=== PATIENT | male | born 1950 | race Caucasian/White ===

== ENCOUNTER 2021-04-11 10:24 | Outpatient (CLI) | payer MEDICARE, MEDICAID, SELFPAY ==
--- NOTE | 2021-04-11 10:44 | XR_ITS ---
WS: [id number] Exam: XR hip RT 2-3V wo/w pel* [id number] Date/Time of Exam: 04/11/2021 10:49 AM Reason For Exam: RIGHT HIP PAIN No acute fracture or dislocation. Degenerative change of the acetabulum. The joint space is relativel y well maintained. Normal soft tissues. XR/XR hip RT 2-3V wo/w pel* [id number] IMPRESSION: 1. Degenerative changes of the acetabulum. 2. No fracture or dislocation.
== END 2021-04-11 10:25 | disposition home or self-care (01) ==
LOC: RAD 10:33
PROVIDERS: PCP Family Medicine; Visit Provider Family Medicine
DX: M25.551 Pain in right hip (principal)
CPT/HCPCS: 73502

== ENCOUNTER → 2021-05-02 09:57 | Outpatient (BNVA) | payer MEDICARE, MEDICAID, SELFPAY | PROVIDERS: PCP Family Medicine; Referring Provider Family Medicine; Visit Provider Specialist | DX: M25.551 Pain in right hip (principal) | CPT/HCPCS: 73502 ==

== ENCOUNTER → 2021-05-08 11:20 | Outpatient (BNVA) | payer MEDICARE, MEDICAID, SELFPAY | PROVIDERS: PCP Family Medicine; Visit Provider Orthopaedic Surgery | DX: M47.896 Other spondylosis, lumbar region (principal); I70.0 Atherosclerosis of aorta; M25.551 Pain in right hip; M54.5 Low back pain | CPT/HCPCS: 72110 ==

== ENCOUNTER 2021-05-29 13:27 | Outpatient (CLI) | payer MEDICARE, MEDICAID, SELFPAY ==
--- NOTE | 2021-05-29 13:36 | MR_ITS ---
WS: [id number] MRI LUMBAR SPINE NONCONTRAST TECHNIQUE: Sagittal T1, T2 and STIR imaging. Axial T1 and T2 imaging. CLINICAL INFORMATION: SPINAL STENOSIS, LUMBAR REGION COMPARISON: MRI 2007 FINDINGS: Mild lumbar curve. No acute compression. Disc disease throughout the lumbar spine with disc space amee rowing and endplate degenerative changes. T12-L1: Mild disc bulging with mild central canal stenosis. Mild facet arthropathy. Mild bilateral fo raminal narrowing. L1-L2: Mild disc bulging and osteophytic ridging. Mild central canal stenosis. Moderate left and no r ight foraminal narrowing. Mild facet arthropathy. L2-L3: Mild disc bulging with osteophytic ridging. Moderate to severe central canal stenosis. Moderat e facet arthropathy. Impingement traversing L3 nerve roots bilaterally. Moderate left and mild right foraminal narrowing. L3-L4: Mild disc bulging and osteophytic ridging. Severe central canal stenosis and impingement on th e traversing L4 nerve roots bilaterally. Moderate to advanced facet arthropathy. Moderate bilateral f oraminal narrowing impinges the exiting L3 nerve roots bilaterally. L4-L5: Mild disc bulging and osteophytic ridging. Moderate to severe central canal stenosis. Impingem ent traversing L5 nerve roots with moderate facet arthropathy. Ligament flavum hypertrophy. Moderate to severe bilateral bony foraminal narrowing. Impingement on the exiting L4 nerve roots worse in the right. L5-S1: Mild disc bulging and osteophytic ridging. Moderate facet arthropathy. Slight impingement on t he left greater than right S1 nerve roots. Severe right greater than left foraminal narrowing. Visualized pelvic bony structures: Normal. Paravertebral soft tissues: Normal. MR/MR lumbar spine wo con* [id number] IMPRESSION: 1. Severe central canal stenosis L2-3 and L3-4 slightly progressed compared to 2007 with redundancy of the cauda equina nerve roots. Moderate to severe centr al canal stenosis L4-5 appears slightly progressed. 2. Mild central canal stenosis T12-L1 and L1-L2. 3. Moderate bilateral foraminal narrowing L3-4. 4. Moderate to severe bilateral foraminal narrowing L4-5 with impingement on t he exiting L4 nerve roots, right greater than left. 5. Severe bilateral L5-S1 foraminal narrowing with impingement on the exiting L5 nerve roots worse on the right. 6. Moderate facet arthropathy L3-L5.
== END 2021-05-29 13:28 | disposition home or self-care (01) ==
PROVIDERS: PCP Family Medicine; Visit Provider Orthopaedic Surgery
DX: M48.062 Spinal stenosis, lumbar region with neurogenic claudication (principal); M48.05 Spinal stenosis, thoracolumbar region; M48.061 Spinal stenosis, lumbar region without neurogenic claudication; M47.816 Spondylosis without myelopathy or radiculopathy, lumbar region
CPT/HCPCS: 72148

== ENCOUNTER → 2021-07-03 10:48 | Day surgery (SDC) | payer MEDICARE, MEDICAID, SELFPAY | PROVIDERS: PCP Family Medicine; Visit Provider Orthopaedic Surgery | DX: Z01.818 Encounter for other preprocedural examination (principal) | CPT/HCPCS: 93005 ==

== ENCOUNTER → 2021-07-03 11:47 | Outpatient (BNVA) | payer MEDICARE, MEDICAID, SELFPAY | PROVIDERS: PCP Family Medicine; Visit Provider Orthopaedic Surgery | DX: Z20.822 Contact with and (suspected) exposure to COVID-19 (principal); M51.37 Other intervertebral disc degeneration, lumbosacral region | CPT/HCPCS: 87635 ==

== ENCOUNTER 2021-07-10 05:38 | Day surgery (SDC) | payer MEDICARE, MEDICAID, SELFPAY ==
--- NOTE | 2021-07-03 10:48 | ECG_ITS ---
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 Measurements Intervals [place] Rate: 52 P: 43 CO: 195 QRS: 53 QRSD: 92 T: 51 QT: 411 QTc: 384 Interpretive Statements SINUS BRADYCARDIA No previous ECG available for comparison Electronically Signed On 07-03-2021 22:12:23 BLOCK SORTER by Avery Benavides M.D. [email or web address]
[2021-07-03 10:57] VITALS: BMI 28.1
--- NOTE | 2021-07-03 12:52 | ANES.PREANE2 ---
Pre-Anesthetic Assessment Pre-Anesthetic Assessment: Height/Weight: Height 1.73 m Weight 83.915 kg Proposed Procedure: Operation Date: 07/10/21 07:00 Proposed Procedures p Lumbar Spine Decompression L2/3 L3/4 L4/5 87781 82292(x2) M51.37(Right) - Jakob H Taniya, DO Was Beta Jemal taken within 24 hours: N/A Was Clonidine taken within 24 hours: N/A Social: Social History: No alcohol and No tobacco Exam: Pre-Anes Outpt Exam: alert, oriented x 3, clear to auscultation bilaterally and regular rate & rhythm Airway: Submandibular: WNL Cervical ROM: WNL MP: 2 Dentition: False GI: GI: GERD Metabolic: Metabolic: Hyperlipidemia Anesthetic Plan: ASA status: 3 Anesthesia: General Risk of > 500 ml blood loss (7ml/kg in children): No PFSH Anesthesia PFSH: Social History Second hand smoke exposure: No Smoking risk assessment/counseling performed?: No Alcohol intake: never Desire information about alcohol rehabilitation?: No Counseling given: No Adopted: No Caregiver/support person: No Lives independently: Yes Marital status: Single Number of children: 3 Number of grandchildren: 6 service: No Current occupational status: retired Previous occupational history: [employer] Pets and animals: No History of recent travel: No Data Anesthesia Cardiac Studies: No Data to Display
[2021-07-10] VITALS (7 sets, daily range): BP systolic 109–163; BP diastolic 53–83; PULSE 64–85; RESP 12–20; TEMP 36.4–36.9; O2SAT 93–98
--- NOTE | 2021-07-10 | SCC_ITS ---
Procedure Done: 1. bilateral L2/3 laminectomy with partial facetectomies 2. bilateral L3/4 laminectomy with partial facetectomies 3. bilateral L4/5 laminectomies with partial facetectomies 25.5 seconds of fluoroscopic guidance, for a cumulative dose of 12.01 mGy, was provided to Dr. Monahan by the radiology department. C-arm images of the lumbar spine were saved for the patient's permanent record. [facility]
[2021-07-10] MEDS: sodium chloride 0.9% 1,000 ML 30 ML IV (06:20)
--- NOTE | 2021-07-10 06:31 | ANES.PAUD2 ---
Pre-Anesthetic Update Pre-Anesthetic Assessment: Date of Surgery/Procedure: 07/10/21 Preop Diagnosis: Lumbar stenosis with neurogenic claudication Proposed Procedure: Operation Date: 07/10/21 07:00 Proposed Procedures p Lumbar Spine Decompression L2/3 L3/4 L4/5 24051 73843(x2) M51.37(Right) - Jakobgeraldine Monahan, DO Any changes to Pre-Anesthetic Assessment?: No Exam: Pre-Anes Outpt Exam: alert, oriented x 3, clear to auscultation bilaterally and regular rate & rhythm Cardiac Studies: No Data to Display
--- NOTE | 2021-07-10 06:44 | W.PM.OPSUD ---
Surgery/Procedure H&P Update DATE OF PROCEDURE: July 10, 2021 DATE H&P PERFORMED: 06/12/21 H&P UPDATE INFORMATION: I have reviewed H&P completed within last 30 days, I have examined patient prior to procedure and No changes to prior documentation PREOP DIAGNOSIS: Lumbar stenosis with neurogenic claudication PLANNED PROCEDURE: Operation Date: 07/10/21 07:00 Proposed Procedures p Lumbar Spine Decompression L2/3 L3/4 L4/5 34007 88251(x2) M51.37(Right) - Jakob Monahan DO
--- NOTE | 2021-07-10 08:58 | XR_ITS ---
WS: [id number] C-ARM RADIOGRAPHS LUMBAR SPINE; 4 IMAGES HISTORY: DEGENERATIVE DISC DISEASE COMPARISON: None available. Intraoperative imaging during spinal decompression. Decompression markers are at multiple levels of t he lumbar spine. XR/XR lumbar spine 1V [id number] IMPRESSION: Intraoperative guidance during lumbar decompression at multiple levels.
--- NOTE | 2021-07-10 09:01 | PM.OP ---
Operative Report Date of procedure: July 10, 2021 Pre-op Diagnosis: Lumbar stenosis with neurogenic claudication Post-op diagnosis: same Procedure Done: 1. bilateral L2/3 laminectomy with partial facetectomies 2. bilateral L3/4 laminectomy with partial facetectomies 3. bilateral L4/5 laminectomies with partial facetectomies Surgeon: Jakob Monahan Assistant Chief Train Dispatcher: Sarkis Albarado Assistant Chief Train Dispatcher: The surgical specialist, Sarkis Albarado, PAC was needed for his expertise under the microscope. He was important and necessary throughout the procedure to complete in a safe and timely manner. He assisted with patient positioning prepping and draping tissue retraction suctioning of the operative field protection of the dural sac and tissue closure Estimated blood loss (mL): 25 Condition: stable Disposition: PACU Procedure: Patient is brought to the operative suite. After undergoing anesthesia they are placed in the prone position. All areas of impingement are well padded. Patient is then prepped and draped in the normal sterile fashion. A skin incision is made over the L4/5 level. This is confirmed under c-arm guidance. A series of dilators are passed and the tubular retractor is docked on the L4 lamina. A bovie is used to clear the soft tissue off the lamina and the L 4/5 facet joint. A high speed russel is then used to perform the laminectomy and take down the medial aspect of the L 4/5 facet joint. A kerrison rongeure was then used to take down the remaining lamina and smooth the edged of the laminectomy up to the point where the ligamentum flavum attaches. Attention was then brought to the medial aspect of the facet joint. The remaining medial aspect of the superior and inferior aspect of the facet joint were taken down with the kerrison from the pedicle of L4 to L 5. The facet joint had significant hypertrophy. Attention was then brought to the Ligamentum Flavum. The ligament was taken down from the lamina of L4 to L5 and out medially to the remaining facet joint. The ligament was thick and calcified. The dura was then exposed. The dura was in good repair. The L4 nerve was then traced with a curette out the L4/5 foramen and found to be adequately decompressed. The L5 nerve was traced with a curette around the L5 pedicle. The lateral recess was opened with a kerrison helping to further decompress the L5 nerve. The tubular retractor was then tilted to the contralateral side. The bovie was used to take down the soft tissue on the spinous process. The high speed russel was used to take down the spinous process and then the contralateral lamina of L4. The kerrison rongeur was used to take down the remaining lamina to the point where the ligamentum flavum attached and the ligamentum flavum was taken down from L4 to L5. The kerrison rongeur was then used to reach across and take down the medial aspect of the contralateral L4/5 facet joint.The currete was used to trace the contralateral L4 nerve out the L4/5 foramen to make sure it was decompressed adequatesly and the L5 was traced around the L5 pedicle. The lateral recess was opened further with the kerrison to ensure the L5 is adequately decompressed. Wound is then irrigated copiously with saline and surgiflo is used to stop any bleeding. The tubular retractor is removed and A skin incision is made over the L3/4 level. This is confirmed under c-arm guidance. A series of dilators are passed and the tubular retractor is docked on the L3 lamina. A bovie is used to clear the soft tissue off the lamina and the L 3/4 facet joint. A high speed russel is then used to perform the laminectomy and take down the medial aspect of the L 3/4 facet joint. A kerrison rongeure was then used to take down the remaining lamina and smooth the edged of the laminectomy up to the point where the ligamentum flavum attaches. Attention was then brought to the medial aspect of the facet joint. The remaining medial aspect of the superior and inferior aspect of the facet joint were taken down with the kerrison from the pedicle of L3 to L 4. The facet joint had significant hypertrophy. Attention was then brought to the Ligamentum Flavum. The ligament was taken down from the lamina of L3 to L4 and out medially to the remaining facet joint. The ligament was thick. The dura was then exposed. The dura was in good repair. The L3 nerve was then traced with a curette out the L3/4 foramen and found to be adequately decompressed. The L4 nerve was traced with a curette around the L4 pedicle. The lateral recess was opened with a kerrison helping to further decompress the L4 nerve. The tubular retractor was then tilted to the contralateral side. The bovie was used to take down the soft tissue on the spinous process. The high speed russel was used to take down the spinous process and then the contralateral lamina of L3. The kerrison rongeur was used to take down the remaining lamina to the point where the ligamentum flavum attached and the ligamentum flavum was taken down from L3 to L4. The kerrison rongeur was then used to reach across and take down the medial aspect of the contralateral L3/4 facet joint.The currete was used to trace the contralateral L3 nerve out the L3/4 foramen to make sure it was decompressed adequatesly and the L4 was traced around the L4 pedicle. The lateral recess was opened further with the kerrison to ensure the L4 is adequately decompressed. Wound is then irrigated copiously with saline and surgiflo is used to stop any bleeding. The tubular retractor is removed and A skin incision is made over the L2/3 level. This is confirmed under c-arm guidance. A series of dilators are passed and the tubular retractor is docked on the L2 lamina. A bovie is used to clear the soft tissue off the lamina and the L 2/3 facet joint. A high speed russel is then used to perform the laminectomy and take down the medial aspect of the L 2/3 facet joint. A kerrison rongeure was then used to take down the remaining lamina and smooth the edged of the laminectomy up to the point where the ligamentum flavum attaches. Attention was then brought to the medial aspect of the facet joint. The remaining medial aspect of the superior and inferior aspect of the facet joint were taken down with the kerrison from the pedicle of L2 to L 3. The facet joint had significant hypertrophy. Attention was then brought to the Ligamentum Flavum. The ligament was taken down from the lamina of L2 to L3 and out medially to the remaining facet joint. The ligament was thick. The dura was then exposed. The dura was in good repair. The L2 nerve was then traced with a curette out the L2/3 foramen and found to be adequately decompressed. The L3 nerve was traced with a curette around the L3 pedicle. The lateral recess was opened with a kerrison helping to further decompress the L3 nerve. The tubular retractor was then tilted to the contralateral side. The bovie was used to take down the soft tissue on the spinous process. The high speed russel was used to take down the spinous process and then the contralateral lamina of L2. The kerrison rongeur was used to take down the remaining lamina to the point where the ligamentum flavum attached and the ligamentum flavum was taken down from L2 to L3. The kerrison rongeur was then used to reach across and take down the medial aspect of the contralateral L2/3 facet joint.The currete was used to trace the contralateral L2 nerve out the L2/3 foramen to make sure it was decompressed adequatesly and the L3 was traced around the L3 pedicle. The lateral recess was opened further with the kerrison to ensure the L3 is adequately decompressed. Wound is then irrigated copiously with saline and surgiflo is used to stop any bleeding. The tubular retractor is removed and the wound is closed with vicryl and monocryl suture. Glue is then used to protect the wound. A sterile dressing is then placed. Patient was then placed in the supine position and transferred to the PACU in stable condition.
--- NOTE | 2021-07-10 10:08 | SUR.PHASEII ---
ROM and sensation all 4 extremities.
--- NOTE | 2021-07-10 13:44 | ANE.PACU2 ---
Inpatient post-anesthesia follow up: Airway intact: Yes Vital signs: Temperature 98.2 F Pulse Rate 64 Respiratory Rate 16 Blood Pressure 125/53 Pulse Oximetry 95 Oxygen Delivery Me thod Room Air Oxygen Flow Rate Fraction of Inspir ed Oxygen Hydration adequate: Yes Nausea and vomiting: No Pain level: 1 Mental status: Baseline
== END 2021-07-10 10:05 | disposition home or self-care (01) ==
PROVIDERS: PCP Family Medicine; Visit Provider Orthopaedic Surgery
PROC: (CPT 63005; principal; 2021-07-10 07:00)
DX: M48.062 Spinal stenosis, lumbar region with neurogenic claudication (principal)
CPT/HCPCS: 63047; 63048 ×2; 72020; 76000; J0690; J1100; J2370; J2405; J2704; J2710; J3010; J3490; J7030

== ENCOUNTER → 2022-01-04 14:33 | Outpatient (BNVA) | payer MEDICARE, MEDICAID, SELFPAY | PROVIDERS: PCP Family Medicine; Visit Provider Family Medicine | DX: N28.9 Disorder of kidney and ureter, unspecified (principal) | CPT/HCPCS: 80048 ==

== ENCOUNTER → 2022-05-14 12:47 | Outpatient (BNVA) | payer MEDICARE, MEDICAID, SELFPAY | PROVIDERS: PCP Family Medicine; Visit Provider Orthopaedic Surgery | DX: M48.062 Spinal stenosis, lumbar region with neurogenic claudication (principal); Z98.890 Other specified postprocedural states; M47.816 Spondylosis without myelopathy or radiculopathy, lumbar region; M25.78 Osteophyte, vertebrae | CPT/HCPCS: 72110; 99214 ==

== ENCOUNTER 2022-07-09 09:47 | Outpatient (CLI) | payer MEDICARE, MEDICAID, SELFPAY ==
--- NOTE | 2022-07-09 10:15 | MR_ITS ---
WS: [id number] MRI LUMBAR SPINE NONCONTRAST TECHNIQUE: Sagittal T1, T2 and STIR imaging. Axial T1 and T2 imaging. CLINICAL INFORMATION: post op increased pain due to fall COMPARISON: MRI May 29, 2021 FINDINGS: Mild lumbar curve. No acute compression. Multilevel degenerative disc disease with disc desiccation t hroughout the lumbar spine with mild disc bulging. RIGHT hemilaminectomy L2-L3 is new from previous. Improved central canal stenosis at this level. RIGHT hemilaminectomy L3-L4 appears new from previous. Improved central canal stenosis at this level with moderate residual narrowing. RIGHT hemilaminectom y L4-L5 appears new from previous with improved central canal stenosis. Suggestion of syrinx in the mid thoracic cord seen on the edge trimming machine operator imaging. This is similar in appearanc e to previous and better visualized today on the edge trimming machine operator imaging. This can be further evaluated with th oracic spine MRI if indicated. Small disc protrusions lower thoracic spine. L1-L2: Mild disc bulging with mild central canal stenosis. Moderate facet arthropathy. Moderate LEFT foraminal narrowing. L2-L3: Mild disc bulging with osteophytic ridging. RIGHT hemilaminectomy is new from previous. Mild r esidual central canal stenosis. Moderate facet arthropathy. Moderate LEFT and mild RIGHT foraminal na rrowing. L3-L4: RIGHT hemilaminectomy is new from previous. Spinal canal stenosis is improved with moderate re sidual narrowing. Moderate to advanced facet arthropathy. Narrowing of the subarticular recess. Moder ate bilateral foraminal narrowing. L4-L5: RIGHT hemilaminectomy appears new from previous. Mild residual central canal stenosis with bro ad-based central protrusion. Impingement on traversing L5 nerve roots bilaterally. Advanced facet art hropathy. Moderate to severe RIGHT and moderate LEFT foraminal narrowing. L5-S1: Mild disc bulging and osteophytic ridging. Slight narrowing of the LEFT subarticular recess. M oderate facet arthropathy. Moderate to severe LEFT greater than RIGHT bony foraminal narrowing unchan ged. Advanced facet arthropathy. Visualized pelvic bony structures: Normal. Paravertebral soft tissues: Normal. MR/MR lumbar spine wo con* [id number] IMPRESSION: 1. Normal expected postoperative changes interval laminectomy defects. No epid ural abscess or drainable fluid collections. 2. Hemilaminectomies at RIGHT L2-L3, L3-L4, L4-L5 are new compared to previous with improved central canal stenosis. Mild to moderate residual central canal stenosis worse at L2-L3 and L3-L4 although improved from previous. 3. Suggestion of a small central syrinx within the thoracic cord on the edge trimming machine operator imaging is better visualized today. Some of this may represent artifact. This c an be further evaluated with thoracic spine MRI if indicated. 4. No other significant changes compared to previous
== END 2022-07-09 09:48 | disposition home or self-care (01) ==
LOC: RAD 09:48
PROVIDERS: PCP Family Medicine; Visit Provider Orthopaedic Surgery
DX: M48.062 Spinal stenosis, lumbar region with neurogenic claudication (principal); Z48.89 Encounter for other specified surgical aftercare
CPT/HCPCS: 72148

== ENCOUNTER → 2022-07-23 14:34 | Outpatient (BNVA) | payer MEDICARE, MEDICAID, SELFPAY | PROVIDERS: PCP Family Medicine; Visit Provider Orthopaedic Surgery | DX: M48.062 Spinal stenosis, lumbar region with neurogenic claudication (principal) | CPT/HCPCS: 99214 ==

== ENCOUNTER → 2022-08-26 08:58 | Outpatient (BNVA) | payer MEDICARE, MEDICAID, SELFPAY | PROVIDERS: PCP Family Medicine; Visit Provider Anesthesiology Pain Medicine | DX: M48.062 Spinal stenosis, lumbar region with neurogenic claudication (principal); M51.37 Other intervertebral disc degeneration, lumbosacral region; M47.816 Spondylosis without myelopathy or radiculopathy, lumbar region; M79.604 Pain in right leg; M79.605 Pain in left leg | CPT/HCPCS: 99205 ==

== ENCOUNTER → 2022-09-12 14:04 | Outpatient (BNVA) | payer MEDICARE, MEDICAID, SELFPAY | PROVIDERS: PCP Family Medicine; Visit Provider Anesthesiology Pain Medicine | DX: M54.16 Radiculopathy, lumbar region (principal); M48.062 Spinal stenosis, lumbar region with neurogenic claudication | CPT/HCPCS: 64483; 64484; J1100; J3490 ==

== ENCOUNTER → 2022-09-26 13:02 | Outpatient (BNVA) | payer MEDICARE, MEDICAID, SELFPAY | PROVIDERS: PCP Family Medicine; Visit Provider Anesthesiology Pain Medicine | DX: M54.16 Radiculopathy, lumbar region (principal); M48.062 Spinal stenosis, lumbar region with neurogenic claudication | CPT/HCPCS: 64483; 64484; J1100; J3490 ==

== ENCOUNTER → 2022-10-10 10:22 | Outpatient (BNVA) | payer MEDICARE, MEDICAID, SELFPAY | PROVIDERS: PCP Family Medicine; Visit Provider Anesthesiology Pain Medicine | DX: M51.17 Intervertebral disc disorders with radiculopathy, lumbosacral region (principal); M48.062 Spinal stenosis, lumbar region with neurogenic claudication; M51.37 Other intervertebral disc degeneration, lumbosacral region; M47.816 Spondylosis without myelopathy or radiculopathy, lumbar region | CPT/HCPCS: 99214 ==

== ENCOUNTER → 2023-03-11 10:04 | Outpatient (BNVA) | payer MEDICARE, MEDICAID, SELFPAY | PROVIDERS: PCP Family Medicine; Visit Provider Family Medicine | DX: Z13.6 Encounter for screening for cardiovascular disorders (principal); R73.9 Hyperglycemia, unspecified | CPT/HCPCS: 80053; 80061; 83036; 85025 ==

== ENCOUNTER → 2023-07-08 14:15 | Outpatient (BNVA) | payer MEDICARE, MEDICAID, SELFPAY | PROVIDERS: PCP Family Medicine; Referring Provider Family Medicine; Visit Provider Dermatology | DX: L57.0 Actinic keratosis (principal); L82.1 Other seborrheic keratosis; L81.4 Other melanin hyperpigmentation; L57.8 Other skin changes due to chronic exposure to nonionizing radiation; Z85.828 Personal history of other malignant neoplasm of skin | CPT/HCPCS: 17004; 99203 ==

== ENCOUNTER → 2023-09-02 10:01 | Outpatient (BNVA) | payer MEDICARE, MEDICAID, SELFPAY | PROVIDERS: PCP Family Medicine; Visit Provider Family Medicine | DX: K21.9 Gastro-esophageal reflux disease without esophagitis (principal); N52.9 Male erectile dysfunction, unspecified; M51.37 Other intervertebral disc degeneration, lumbosacral region; Z13.6 Encounter for screening for cardiovascular disorders | CPT/HCPCS: 80053; 80061; 85025 ==

== ENCOUNTER 2023-10-15 09:24 | Outpatient (CLI) | payer MEDICARE, MEDICAID, SELFPAY ==
--- NOTE | 2023-10-15 09:31 | XR_ITS ---
WS: [id number] Exam: XR chest 2V* [id number] Date/Time of Exam: 10/15/2023 9:59 AM Reason For Exam: R05.3 - Chronic cough Comparison 03/16/2016. The lungs are hyperinflated and clear. Normal cardiomediastinal silhouette. Bony structures are intac t. Rotator cuff anchoring screws in the bilateral humeri. IMPRESSION: 1. Pulmonary hyperinflation which might represent obstructive lung disease. No acute process noted.
== END 2023-10-15 09:25 | disposition home or self-care (01) ==
PROVIDERS: PCP Family Medicine; Visit Provider Family Medicine
DX: R05.3 Chronic cough (principal); R91.8 Other nonspecific abnormal finding of lung field
CPT/HCPCS: 71046

== ENCOUNTER 2023-11-04 09:25 | Outpatient (CLI) | payer MEDICARE, MEDICAID, SELFPAY ==
--- NOTE | 2023-11-04 09:35 | CTR_ITS ---
PROCEDURE INFORMATION: Exam: CT Chest With Contrast; Diagnostic Exam date and time: 11/04/2023 10:35 AM Age: 72 years old Clinical indication: Cough; Additional info: R05.3 - chronic cough TECHNIQUE: Imaging protocol: Diagnostic computed tomography of the chest with contrast. Radiation optimization: All CT scans at this facility use at least one of these dose optimization techniques: automated exposure control; mA and/or kV adjustment per patient size (includes targeted exams where dose is matched to clinical indication); or iterative reconstruction. Contrast material: OMNI 350; Contrast volume: 100 ml; Contrast route: INTRAVENOUS (IV); COMPARISON: CR XR chest 2V* [id number] 10/15/2023 10:00 AM RADIATION DOSE METRICS: Total DLP (mGy-cm): 417.42 FINDINGS: Lungs: No focal lung consolidation. Scattered calcified granulomas measuring up to 0.5 cm in the right upper lobe. Pleural spaces: No pneumothorax. No pleural effusion. Heart: No cardiomegaly. No pericardial effusion. Coronary arteries: Coronary artery calcifications. Mediastinal space: The visualized trachea and esophagus are unremarkable in appearance. Lymph nodes: Calcified left hilar lymph nodes. Vasculature: Unremarkable. No aortic aneurysm. Liver: Scattered low-density lesions in the liver compatible with cysts measuring up to 2.4 cm Bones/joints: No acute bony abnormality. Soft tissues: Subcutaneous soft tissues are unremarkable. CT/CT chest w con* [id number] IMPRESSION: No focal lung consolidation.
[2023-11-04 10:35] LABS: Blood Urea Nitrogen 16 mg/dL (8-23)
[2023-11-04] MEDS: iohexol 350 mg/mL 500 mL Btl (per mL) IV (10:42)
== END 2023-11-04 09:26 | disposition home or self-care (01) ==
LOC: RAD 09:25
PROVIDERS: PCP Family Medicine; Visit Provider Family Medicine
DX: R05.3 Chronic cough (principal)
CPT/HCPCS: 71260; 82565; 84520; Q9967

== ENCOUNTER → 2023-11-06 12:46 | Outpatient (BNVA) | payer MEDICARE, MEDICAID, SELFPAY | PROVIDERS: PCP Family Medicine; Visit Provider Dermatology | DX: L57.0 Actinic keratosis (principal); L57.8 Other skin changes due to chronic exposure to nonionizing radiation; L82.1 Other seborrheic keratosis; L72.8 Other follicular cysts of the skin and subcutaneous tissue; Z85.828 Personal history of other malignant neoplasm of skin | CPT/HCPCS: 17000; 99213 ==

== ENCOUNTER → 2024-02-17 09:54 | Outpatient (BNVA) | payer MEDICARE, MEDICAID, SELFPAY | PROVIDERS: PCP Family Medicine; Visit Provider Family Medicine | DX: K21.9 Gastro-esophageal reflux disease without esophagitis (principal); N52.9 Male erectile dysfunction, unspecified; M48.062 Spinal stenosis, lumbar region with neurogenic claudication; M51.37 Other intervertebral disc degeneration, lumbosacral region; R05.3 Chronic cough; Z13.6 Encounter for screening for cardiovascular disorders; Z79.899 Other long term (current) drug therapy | CPT/HCPCS: 80053; 80061 ==

== ENCOUNTER → 2024-05-13 09:54 | Outpatient (BNVA) | payer MEDICARE, MEDICAID, SELFPAY | PROVIDERS: PCP Family Medicine; Visit Provider Nurse Practitioner Family | DX: L57.0 Actinic keratosis (principal); L57.8 Other skin changes due to chronic exposure to nonionizing radiation; L82.1 Other seborrheic keratosis; L72.8 Other follicular cysts of the skin and subcutaneous tissue; Z85.828 Personal history of other malignant neoplasm of skin | CPT/HCPCS: 17000; 99213 ==

== ENCOUNTER → 2024-08-03 10:47 | Outpatient (BNVA) | payer MEDICARE, MEDICAID, SELFPAY | PROVIDERS: PCP Family Medicine; Visit Provider Family Medicine | DX: Z00.00 Encounter for general adult medical examination without abnormal findings (principal); R53.83 Other fatigue; E03.9 Hypothyroidism, unspecified | CPT/HCPCS: 80053; 80061; 82607; 84443; 85025 ==

== ENCOUNTER → 2024-09-15 08:41 | Outpatient (BNVA) | payer MEDICARE, MEDICAID, SELFPAY | PROVIDERS: PCP Family Medicine; Visit Provider Specialist | DX: G56.01 Carpal tunnel syndrome, right upper limb; Z46.89 Encounter for fitting and adjustment of other specified devices | CPT/HCPCS: 73130 ==

== ENCOUNTER 2024-09-15 10:48 | Outpatient (CLI) | payer MEDICARE, MEDICAID, SELFPAY | END 2024-09-15 10:49 | disposition home or self-care (01) | LOC: SPT 10:49 | PROVIDERS: PCP Family Medicine; Visit Provider Specialist | DX: Z46.89 Encounter for fitting and adjustment of other specified devices (principal); G56.01 Carpal tunnel syndrome, right upper limb | CPT/HCPCS: 99204; L3908 ==

== ENCOUNTER → 2024-10-14 12:53 | Outpatient (BNVA) | payer MEDICARE, MEDICAID, SELFPAY | PROVIDERS: PCP Family Medicine; Referring Provider Specialist; Visit Provider Specialist | DX: G56.03 Carpal tunnel syndrome, bilateral upper limbs (principal) | CPT/HCPCS: 95910 ==

== ENCOUNTER → 2024-10-27 10:57 | Outpatient (BNVA) | payer MEDICARE, MEDICAID, SELFPAY | PROVIDERS: PCP Family Medicine; Visit Provider Specialist | DX: Z01.818 Encounter for other preprocedural examination (principal) | CPT/HCPCS: 36415; 80053; 81001; 85025 ==

== ENCOUNTER 2024-11-04 08:59 | Day surgery (SDC) | payer MEDICARE, MEDICAID, SELFPAY ==
[2024-11-04] VITALS (8 sets, daily range): BP systolic 120–146; BP diastolic 64–95; PULSE 75–87; RESP 16–18; TEMP 36.2–36.6; O2SAT 93–97; BMI 30.3
[2024-11-04] MEDS: sodium chloride 0.9% 1,000 ML 30 ML IV (09:36)
--- NOTE | 2024-11-04 09:42 | SUR.PREOP ---
dr ordered foot pumps. department out of stock on foots pumps. dr. yancey with using bilateral leg pumps.
[2024-11-04] MEDS: CELEcoxib 200 mg Capsule 400 MG PO (09:53)
[2024-11-04] MEDS: acetaminophen 1,000 MG/100 ML PIGGYBACK 400 MG IV (09:53)
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
--- NOTE | 2024-11-04 12:25 | W.PM.OPSUD ---
Surgery/Procedure H&P Update DATE OF PROCEDURE: November 04, 2024 DATE H&P PERFORMED: 10/27/24 H&P UPDATE INFORMATION: I have reviewed H&P completed within last 30 days, I have examined patient prior to procedure, No changes to prior documentation and H&P is in [facility] EMR on date indicated PREOP DIAGNOSIS: Carpal tunnel syndrome PLANNED PROCEDURE: Operation Date: 11/04/24 11:40 Proposed Procedures p Right Carpal Tunnel Release(Right) - Flora Painter MD Related Problem List Diagnoses (1) Carpal tunnel syndrome on right:
[2024-11-04] MEDS: ceFAZolin 2,000 mg SDV 2000 MG IVP (12:34)
[2024-11-04] MEDS: BUPivacaine 0.5% INJ 30 mL 20 ML INJECTION (13:14)
--- NOTE | 2024-11-04 13:32 | P.OP_ITS ---
Operative Report Date of procedure: November 04, 2024 Pre-op diagnosis: Right carpal tunnel syndrome Post-op diagnosis: Right carpal tunnel syndrome Post-op findings: Severe compression across the median nerve on the right with thickened transverse carpal ligament and more proximal soft tissues Procedure done: Right carpal tunnel release Implants: None Specimens removed/disposition: None Pathology: None Surgeon: Flora Painter MD Customer Project Manager: None Anesthesia: General (Per LMA, ASA 2) Estimated blood loss (mL): 1 Tourniquet time (min): 17 (At 250 mmHg) IV fluids (mL): 500 Urine output (mL): 0 (No Miller) Complications: None Findings: Severe compression across the carpal tunnel with purplish discoloration of the median nerve. Obvious findings of carpal tunnel/median nerve compression. Condition: stable Disposition: PACU (Then return to same-day surgery for discharge to home) Brief History: This 73-year-old gentleman presents today for outpatient right carpal tunnel release. He had findings on nerve conduction study which demonstrated severe entrapment both on the right and left wrists. He wished to be treated for the right wrist first. Risks and complications of the surgery were discussed with him. Consents were signed preoperatively and questions were answered. Procedure: The patient was brought to the operating theater. The patient had general anesthesia per LMA, ASA 2, which was well-tolerated. The tourniquet was elevated to 250 mmHg for a total tourniquet time of 17 minutes. The patient was also given Ancef 2 g preoperatively. The arm was then prepped and draped with DuraPrep in usual fashion with the arm draped free. A surgical pause was performed. At the time, the surgical pause, we confirmed the site and side of surgery. We also confirmed the patient's identity, appropriate and timely administration of preoperative antibiotics and preoperative surgical markings. An incision was then made along the thenar crease. The incision crossed the wrist joint in a curvilinear fashion. Dissection continued through skin and soft tissues using a scalpel. The palmaris longus was identified along with the transverse carpal ligament. Each of these was released carefully to avoid injury to the median nerve. We were able to dissect gently into the carpal canal which was noted to be quite tight with significant compression across the median nerve. The nerve was visualized and was an hourglass shape. The canal was subsequently palpated to assure there was no bony encroachment upon the canal. There was a quite thickened fibrous tissue within the canal, and this was opened longitudinally as well. The canal was then palpated distally and proximally to assure that my small finger was passed easily without impingement. Finding this to be so, attention was directed to closure. The wound was irrigated with ropivacaine plain. It was then closed with 3-0 nylon in an interrupted mattress fashion. Sterile dressing was then placed consisting of Dermabond, OpSite, fluffed fluffs, sterile soft roll, and an Tomasz wrap. The tourniquet was released after 17 minutes. There were no complications. There were no specimens. The procedure was well tolerated. Plan is the patient will be discharged home. Related Problem List Diagnoses (1) Carpal tunnel syndrome on right:
--- NOTE | 2024-11-04 14:20 | ANE.PACU2 ---
Inpatient post-anesthesia follow up: Airway intact: Yes Vital signs: Temperature 97.4 F Pulse Rate 87 Respiratory Rate 18 Blood Pressure 132/76 Pulse Oximetry 93 Oxygen Delivery Me thod Room Air Oxygen Flow Rate Fraction of Inspir ed Oxygen Hydration adequate: Yes Nausea and vomiting: No Pain level: 1 Mental status: Baseline
== END 2024-11-04 14:20 | disposition home or self-care (01) ==
PROVIDERS: PCP Family Medicine; Visit Provider Specialist
PROC: (CPT 64721; principal; 2024-11-04 11:30)
DX: G56.01 Carpal tunnel syndrome, right upper limb (principal); K21.9 Gastro-esophageal reflux disease without esophagitis; E78.5 Hyperlipidemia, unspecified
CPT/HCPCS: 64721; J0131; J0690; J2704; J3010; J3490; J7030; J9999

== ENCOUNTER → 2024-12-10 10:36 | Outpatient (BNVA) | payer MEDICARE, MEDICAID, SELFPAY | PROVIDERS: PCP Family Medicine; Visit Provider Nurse Practitioner Family | DX: L57.0 Actinic keratosis (principal); X32.XXXA Exposure to sunlight, initial encounter; L82.1 Other seborrheic keratosis; L57.8 Other skin changes due to chronic exposure to nonionizing radiation; L81.4 Other melanin hyperpigmentation; Z08 Encounter for follow-up examination after completed treatment for malignant neoplasm; Z85.828 Personal history of other malignant neoplasm of skin | CPT/HCPCS: 17000; 99214 ==

== ENCOUNTER → 2025-06-14 09:53 | Outpatient (BNVA) | payer MEDICARE, MEDICAID, SELFPAY | PROVIDERS: PCP Family Medicine; Visit Provider Nurse Practitioner Family | DX: L82.1 Other seborrheic keratosis (principal); L57.8 Other skin changes due to chronic exposure to nonionizing radiation; X32.XXXA Exposure to sunlight, initial encounter; L81.4 Other melanin hyperpigmentation; Z08 Encounter for follow-up examination after completed treatment for malignant neoplasm; Z85.828 Personal history of other malignant neoplasm of skin; D48.5 Neoplasm of uncertain behavior of skin; L57.0 Actinic keratosis | CPT/HCPCS: 11102; 17000; 99213 ==

== ENCOUNTER → 2025-07-12 10:34 | Outpatient (BNVA) | payer MEDICARE, MEDICAID, SELFPAY | PROVIDERS: PCP Family Medicine; Visit Provider Family Medicine | DX: M48.062 Spinal stenosis, lumbar region with neurogenic claudication (principal); R53.83 Other fatigue; N28.9 Disorder of kidney and ureter, unspecified | CPT/HCPCS: 80053; 80061; 82607 ==